=== PATIENT | male | born 1945 | race Caucasian/White ===

== ENCOUNTER 2016-12-14 10:33 | Emergency (ER) | payer OTHER ==
[~2016-12-14] VITALS: Ht 152.4 cm; Wt 67.5 kg
[~2016-12-14 10:33] MED LIST: ASPI-664 PO; BENA20TA48 PO; CIPR500T4 PO; GLYB5TAB3 PO; HYDR-3498 PO; METF1000 PO; METR500T PO; SIMV20TA PO
[2016-12-14 10:38] VITALS: Ht 152.4 cm; Wt 67.5 kg
--- NOTE | 2016-12-14 13:33 | RADRPT ---
PROCEDURE: XR Left rib series. CLINICAL INDICATION: Left-sided rib pain TECHNIQUE: AP chest and 2 views of the left rib cage are available for review COMPARISON: None available FINDINGS: The osseous structures, articular spaces, and surrounding soft tissues of the left rib cage are inta ct. No acute fracture or dislocation is seen. No radiopaque foreign body is identified. The visual ized portions of the underlying lung is clear. IMPRESSION: 1. Unremarkable left rib cage x-ray series. RPTAT: KK .Asad Quintero MD, MD Date Time Electronically viewed and signed by .Asad Quintero MD, on 12/14/2016 13:32 .L/
--- NOTE | 2016-12-14 13:40 | ERD ---
ER Documentation Chief Complaint Date/Time DATE: 12/14/16 TIME: 13:38 Chief Complaint CWP S/P FELL PLAYING SOCCER COLLIDED W/SOMEONE HPI Patient is a 71-year-old male who states that one week ago he was playing soccer and he collided with an object on the feel and it hit him in the left lower rib cage. At that time he had a much stronger rib cage pain but states the pain is improving however he does still have some pain that is now mild and so he came to the emergency room and is to make sure that there is no broken bones. He denies any head injury or KO. No midsternal chest pain or palpitations or diaphoresis. He has been taking anti-inflammatories at home. ROS All systems reviewed and are negative except as per history of present illness. Medications Home Meds Active Scripts Hydrocodone Bit-Acetaminophen* ([place]*) 5-325 Mg Tab, 1 TAB PO Q4H Y for PAIN for 7 Days, TAB Prov:CLARITZA HARO MD 04/07/14 Metronidazole* (Flagyl*) 500 Mg Tablet, 500 MG PO Q8 for 7 Days, TAB Prov:CLARITZA HARO MD 04/07/14 Ciprofloxacin Hcl* (Ciprofloxacin Hcl*) 500 Mg Tablet, 500 MG PO BID for 7 Days , TAB Prov:CLARITZA HARO MD 04/07/14 Reported Medications Metformin Hcl* (Metformin Hcl*) 1,000 Mg Tablet, 1000 MG PO BID, TAB 04/04/14 Aspirin* (Aspirin* EC) 81 Mg Tablet.dr, 81 MG PO DAILY, TAB 04/04/14 Benazepril Hcl* (Benazepril Hcl*) 20 Mg Tablet, 20 MG PO DAILY, TAB 04/04/14 Simvastatin* (Zocor*) 20 Mg Tablet, 20 MG PO HS, TAB 04/04/14 Glyburide* (Glyburide*) 5 Mg Tablet, 5 MG PO BID 05/04/12 Allergies Allergies: Coded Allergies: No Known Allergies (Verified Allergy, Unknown, 04/04/14) PMhx/Soc History of Surgery: Yes (APPY ) Anesthesia Reaction: No Hx Neurological Disorder: No Hx Respiratory Disorders: No Hx Cardiac Disorders: Yes (HTN, HYPERLIPIDEMIA) Hx Psychiatric Problems: No Hx Miscellaneous Medical Probl: No Hx Alcohol Use: Yes (OCCATIONAL) Hx Substance Use: No Hx Tobacco Use: No FmHx Family History: diabetes Physical Exam Vitals Vital Signs Date Time Temp Pulse Resp B/P Pulse Ox O2 Delivery O2 Flow Rate FiO2 12/14/16 10:38 98.3 70 20 164/74 98 Physical Exam INITIAL VITAL SIGNS: Reviewed by me GENERAL: Awake, alert and oriented x 4, well appearing, nontoxic, speaking in full sentences. No acute distress RESPIRATORY: Clear to auscultation bilaterally. Symmetric chest wall rise. No wheezing or rales. No accessory muscle use. CV: Regular rate and rhythm. No murmurs, rubs, or gallops. BACK: No midline tenderness to palpation. No step-offs. SKIN: Chest wall has no step-offs or bony abnormalities over the left rib cage field where the patient's pain is Procedures/MDM 71-year-old male presents after trauma to his ribs 1 week ago. His pain is improving however he does have some pain still so he came to the emergency room. His EKG was normal sinus rhythm with a rate of 67 with normal axis and no evidence of ST elevation or acute ischemic changes. Rib x-ray was negative. Recommend patient continue to take anti-inflammatories as needed. Patient counseled regarding my diagnostic impression and care plan. Prior to discharge all questions answered. Pt agrees with treatment plan and understands strict return precautions. Pt is instructed to follow up with primary care provider within 24-48 hours. Precautionary instructions provided including instructions to return to the ER if not improving or for any worsening or changing symptoms or concerns. Departure Diagnosis: Primary Impression: Rib contusion Condition: Stable TIARA JARA PA-C Dec 14, 2016 13:40
[2016-12-14] MEDS ORDERED: IBUP400T22 PO (13:41)
== END 2016-12-14 13:49 | disposition home or self-care (01) ==
LOC: FTE 10:33
DX: S20.212A Contusion of left front wall of thorax, initial encounter (principal); I10 Essential (primary) hypertension; W50.0XXA Accidental hit or strike by another person, initial encounter; Y92.322 Soccer field as the place of occurrence of the external cause; Z79.82 Long term (current) use of aspirin; Z79.84 Long term (current) use of oral hypoglycemic drugs
CPT/HCPCS: 71100; 93005